=== PATIENT | female | born 1990 | race Two or more races ===

== ENCOUNTER 2019-12-03 02:19 | Emergency (ER) | payer MEDICAID ==
[~2019-12-03] VITALS: Ht 162.6 cm; Wt 55.0 kg
[2019-12-03] MEDS ORDERED: IBUPROFEN 600MG TABLET PO ONE (04:00)
[2019-12-03] MEDS ORDERED: METOCLOPRAMIDE HCL 10MG/2ML VIAL IV NR (05:30)
[2019-12-03] MEDS ORDERED: DIPHENHYDRAMINE 50MG/ML VIAL IV NR (05:30)
[2019-12-03 07:13] VITALS: BP 119/78
== END 2019-12-03 08:23 | disposition home or self-care (01) ==
LOC: ER 02:19
DX: B34.9 Viral infection, unspecified (principal); J06.9 Acute upper respiratory infection, unspecified; F17.290 Nicotine dependence, other tobacco product, uncomplicated; Z88.1 Allergy status to other antibiotic agents
CPT/HCPCS: 71045; 96374; 96375; 99284; 99406; J1200; J2765

== ENCOUNTER 2020-06-15 10:38 | Emergency (ER) | payer MEDICAID ==
[~2020-06-15] VITALS: Ht 154.9 cm; Wt 60.0 kg
[2020-06-15 10:42] VITALS: BP 172/112
[2020-06-15] MEDS ORDERED: IBUP-2029 MT (12:56)
[2020-06-15] MEDS ORDERED: ACET-2708 MT (12:56)
== END 2020-06-15 13:42 | disposition home or self-care (01) ==
LOC: ER 10:38
DX: S93.402A Sprain of unspecified ligament of left ankle, initial encounter (principal); M25.472 Effusion, left ankle; W01.0XXA Fall on same level from slipping, tripping and stumbling without subsequent striking against object, initial encounter; Y93.51 Activity, roller skating (inline) and skateboarding; Y92.9 Unspecified place or not applicable; Z88.3 Allergy status to other anti-infective agents
CPT/HCPCS: 73610; 73620; 99284

== ENCOUNTER 2020-07-23 18:15 | Emergency (ER) | payer MEDICAID ==
[~2020-07-23] VITALS: Ht 162.6 cm; Wt 60.0 kg
[~2020-07-23 18:15] MED LIST: ACET-2708 MT; IBUP-2029 MT
[2020-07-23 18:20] VITALS: BP 160/100
[2020-07-23] MEDS ORDERED: ACETAMINOPHEN 325MG TABLET PO ONE (19:00)
[2020-07-23] MEDS ORDERED: ALBU6.7H11 INH (19:09)
[2020-07-23] MEDS ORDERED: TOPUD MT (19:09)
== END 2020-07-23 20:38 | disposition home or self-care (01) ==
LOC: ER 18:15
DX: J02.9 Acute pharyngitis, unspecified (principal); B34.9 Viral infection, unspecified; Z88.1 Allergy status to other antibiotic agents; Z88.8 Allergy status to other drugs, medicaments and biological substances; Z79.899 Other long term (current) drug therapy
CPT/HCPCS: 87070; 87430; 99283

== ENCOUNTER 2021-08-13 16:35 | Emergency (ER) | payer SELFPAY ==
[~2021-08-13] VITALS: Ht 167.6 cm; Wt 81.0 kg
[~2021-08-13 16:35] MED LIST changes: +ALBU6.7H15 INH; +GUAI-996 MT; +TOPUD MT
[2021-08-13] MEDS ORDERED: HYDROCODONE/ACETAMINOPHEN 5/325MG TABLET PO ONE (19:00)
[2021-08-13] MEDS ORDERED: ONDANSETRON 4MG ODT PO ONE (19:00)
[2021-08-13 19:02] VITALS: BP 164/110
[2021-08-13] MEDS ORDERED: IBUP-2030 MT (19:41)
[2021-08-13] MEDS ORDERED: TRAM50TA3 MT (19:59)
== END 2021-08-13 20:37 | disposition home or self-care (01) ==
LOC: ER 16:35
DX: S99.811A Other specified injuries of right ankle, initial encounter (principal); S89.81XA Other specified injuries of right lower leg, initial encounter; F12.10 Cannabis abuse, uncomplicated; Z88.3 Allergy status to other anti-infective agents; W01.0XXA Fall on same level from slipping, tripping and stumbling without subsequent striking against object, initial encounter; Y93.89 Activity, other specified; Y92.018 Other place in single-family (private) house as the place of occurrence of the external cause
CPT/HCPCS: 73562; 73610; 99284; L1830; Q0162

== ENCOUNTER 2022-01-06 13:28 | Emergency (ER) | payer MEDICAID ==
[~2022-01-06] VITALS: Ht 157.5 cm; Wt 75.0 kg
[~2022-01-06 13:28] MED LIST changes: +IBUP-2030 MT; +TRAM50TA3 MT
[2022-01-06] MEDS ORDERED: KETOROLAC 15MG/ML VIAL IM ONE (15:00)
[2022-01-06 15:43] VITALS: BP 149/95
[2022-01-06] MEDS ORDERED: NAPR500T7 MT (16:12)
== END 2022-01-06 16:40 | disposition home or self-care (01) ==
LOC: ER 13:43
DX: M25.561 Pain in right knee (principal); M25.562 Pain in left knee; F12.10 Cannabis abuse, uncomplicated; Z79.899 Other long term (current) drug therapy
CPT/HCPCS: 73562; 81025; 96372; 99283; J1885

== ENCOUNTER 2024-02-03 21:21 | Emergency (ER) | payer MEDICAID ==
[~2024-02-03] VITALS: Ht 162.6 cm; Wt 64.0 kg
[~2024-02-03 21:21] MED LIST changes: +NAPR-1486 MT
[2024-02-03 21:29] VITALS: TEMP 98.8; O2SAT 100
[2024-02-03 22:22] LABS: CLARITY URINE CLOUDY (CLEAR); COLOR URINE YELLOW (YELLOW); GLUCOSE URINE NEGATIVE (NEGATIVE); KETONES URINE NEGATIVE (NEGATIVE); LEUKOCYTE ESTERASE URINE 2+ (NEGATIVE); NITRITE URINE NEGATIVE (NEGATIVE); OCCULT BLOOD URINE 3+ (NEGATIVE); PROTEIN URINE 1+ (NEGATIVE); SPECIFIC GRAVITY URINE 1.023 (1.005-1.030)
[2024-02-03 22:56] LABS: BACTERIA URINE 2+; SQUAMOUS EPITHELIAL CELL URINE 2+ /lpf (RARE/1+)
[2024-02-03] MEDS ORDERED: CEPH500T MT (23:45)
[2024-02-03] MEDS ORDERED: DOXY100C74 MT (23:48)
[2024-02-04] MEDS: DOXYCYCLINE HYCLATE 100MG CAPSULE PO ONE (00:30)
[2024-02-04] MEDS: CEFTRIAXONE SODIUM 500MG VIAL IM ONE (00:30)
[2024-02-04 00:33] VITALS: BP 157/102; PULSE 74; RESP 16; O2SAT 100
== END 2024-02-04 00:34 | disposition home or self-care (01) ==
LOC: ER 21:21
DX: N39.0 Urinary tract infection, site not specified (principal); I10 Essential (primary) hypertension; Z79.1 Long term (current) use of non-steroidal anti-inflammatories (NSAID); Z88.1 Allergy status to other antibiotic agents; F12.90 Cannabis use, unspecified, uncomplicated; F10.90 Alcohol use, unspecified, uncomplicated; Y90.0 Blood alcohol level of less than 20 mg/100 ml
CPT/HCPCS: 99283; 81003; 81025; 96372; J0696